=== PATIENT | male | born 1935 | race Two or more races ===

== ENCOUNTER 2022-12-09 15:38 | Emergency (ER) | payer OTHER ==
[~2022-12-09] VITALS: Ht 162.6 cm; Wt 63.5 kg
== END 2022-12-09 19:53 | disposition home or self-care (01) ==
LOC: ER 15:38 → EMR PED 15:58 → ER 15:58
DX: S29.8XXA Other specified injuries of thorax, initial encounter (principal); W19.XXXA Unspecified fall, initial encounter; Y93.9 Activity, unspecified; Y92.9 Unspecified place or not applicable; Y99.9 Unspecified external cause status; S40.012A Contusion of left shoulder, initial encounter; Z88.0 Allergy status to penicillin

== ENCOUNTER 2023-12-07 18:47 | Inpatient (IN) | payer OTHER ==
[~2023-12-07] VITALS: Ht 162.6 cm; Wt 74.8 kg
--- NOTE | 2023-12-07 19:05 | NUR ---
SE RECIBE PTE ALERTA EN AMBULANCIA ACOMPANADO DE HIJA. LA CUAL REFIERE TRAER A PTE CON UN ABSCESS EN LA ESPALDA, DEBILIDAD Y ABRACION EN EL BRAZO RT
[2023-12-07] MEDS ORDERED: CLINDAMYCIN PHOSPHATE 150 MG/ML (300mg) IV ONE (19:15)
[2023-12-07] MEDS ORDERED: 0.9 % SODIUM CHLORIDE 1,000 ML IV SCH (19:15)
[2023-12-07] MEDS ORDERED: LORazepam 2 MG/ML VIAL IM ONE (20:00)
--- NOTE | 2023-12-07 20:11 | NUR ---
SE ORIENTA FAMILIAR DE PTE SOBRE TX A SEGUIR, EL CUAL REFIERE ENTENDER. SE COLECTAN MUESTRAS Y SE CANALIZA PTE UTILIZANDO MEDIDAS ASEPTICAS. SE ADM. MEDICAMENTOS DORIS ORDEN MEDICA BAJO MEDIDAS ASEPTICAS.
[2023-12-07 20:17] LABS: URINE APPEARANCE Clear; URINE BILIRRUBIN Negative (NEGATIVE); URINE BLOOD Small; URINE COLOR Yellow; URINE GLUCOSE Negative (NEGATIVE); URINE LEUKOCYTE Negative; URINE NITRATE Negative; URINE PROTEIN 30 (NEGATIVE)
[2023-12-07 20:18] LABS: URINE BACTERIA 71.7 uL (0.0-1933); URINE EPITHELIAL CELLS 3.3 uL (0.0-38.8); URINE RBC 22.9 uL (0.0-20.8); URINE WBC 6.4 uL (0.0-23.2)
[2023-12-07 20:23] LABS: HEMATOCRIT 33.7 % (39.0-48.0); HEMOGLOBIN 11.3 g/dL (13-16.00); MEAN CELL VOLUME 88.9 fL (80.0-100.00); MEAN CORPUSCULAR HEMOGLOBIN 29.7 pg (27.00-32.0); MEAN CORPUSCULAR HGB CONC 33.4 g/dl (32.0-36.0); PLATELET COUNT 364 K/uL (150-450); RED BLOOD COUNT 3.79 M/uL (4.00-6.00); RED CELL DISTRIBUTION WIDTH 16.3 % (11.5-14.5)
[2023-12-07 20:56] LABS: ALBUMIN 2.6 gm/dL (3.4-5.0); BILIRUBIN TOTAL 0.47 mg/dL (0.3-1.2); CALCIUM 8.6 mg/dL (8.5-10.1); CREATININE SERUM 1.13 mg/dL (0.70-1.30); GFR 61.1; GLOBULINA 4.9 G/DL (2.4-3.5); POTASSIUM 3.99 mEq/L (3.5-5.1); TOTAL PROTEIN 7.5 gm/dL (6.4-8.2)
[2023-12-07] MEDS ORDERED: FUROsemide 20 MG/2 ML VIAL IV SCH (23:17)
[2023-12-07] MEDS ORDERED: LORazepam 2 MG/ML VIAL IM PRN (23:30)
[2023-12-07] MEDS ORDERED: DIPHENHYDRAMINE HCL 50 MG in 0.9 % SODIUM CHLORIDE 50 ML IV PRN (23:30)
[2023-12-07] MEDS ORDERED: ONDANSETRON HCL 4 MG in 0.9 % SODIUM CHLORIDE 50 ML IV PRN (23:30)
[2023-12-07] MEDS ORDERED: ACETAMINOPHEN 500 MG GEL..CAP PO PRN (23:30)
[2023-12-08] MEDS ORDERED: IPRATROPIUM BROMIDE 0.5 MG/2.5 ML AMPUL.NEB IH SCH
[2023-12-08] MEDS ORDERED: CLINDAMYCIN PHOSPHATE 600 MG in 0.9 % SODIUM CHLORIDE 50 ML IV SCH (01:00)
[2023-12-08 06:28] LABS: ABG PH 7.472 (7.35-7.45); ABG PO2 93.8 mmHg (80-100); ABG pCO2 38.4 mmHg (35-45); BASE EXCESS 3.7 mmol/l; BICARBONATE 27.4 mmol/l (23-25); SaO2 97.9 %; Tco2 28.6 mmol/l
[2023-12-08 06:30] LABS: allen test SATISFACTORY; o2 21 %; puncture site RADIAL LEFT
[2023-12-08] MEDS ORDERED: ENOXAPARIN SODIUM 40 MG/0.4 ML SYRINGE SUBCUTANEO SCH (09:00)
[2023-12-08] MEDS ORDERED: ASPIRIN 81 MG TABLET.EC PO SCH (09:00)
[2023-12-08] MEDS ORDERED: FAMOTIDINE/PF 20 MG in 0.9 % SODIUM CHLORIDE 8 ML IV PUSH SCH (09:00)
[2023-12-08 09:32] LABS: HEMOGLOBIN 10.4 g/dL (13-16.00); MEAN CELL VOLUME 88.2 fL (80.0-100.00); MEAN CORPUSCULAR HEMOGLOBIN 29.5 pg (27.00-32.0); MEAN CORPUSCULAR HGB CONC 33.4 g/dl (32.0-36.0); PLATELET COUNT 303 K/uL (150-450); RED BLOOD COUNT 3.52 M/uL (4.00-6.00); RED CELL DISTRIBUTION WIDTH 15.8 % (11.5-14.5)
[2023-12-08 09:33] LABS: URINE APPEARANCE Clear; URINE BILIRRUBIN Negative (NEGATIVE); URINE BLOOD Large; URINE COLOR Yellow; URINE GLUCOSE Negative (NEGATIVE); URINE LEUKOCYTE Negative; URINE NITRATE Negative
[2023-12-08 09:40] LABS: URINE BACTERIA 195.2 uL (0.0-1933); URINE EPITHELIAL CELLS 12.3 uL (0.0-38.8); URINE RBC 2193.6 uL (0.0-20.8); URINE WBC 31.3 uL (0.0-23.2)
[2023-12-08 09:49] LABS: URINE PROTEIN 100 (NEGATIVE)
[2023-12-08 10:05] LABS: ABG PH 7.462 (7.35-7.45); ABG PO2 63.7 mmHg (80-100); ABG pCO2 39.5 mmHg (35-45); BASE EXCESS 3.6 mmol/l; BICARBONATE 27.6 mmol/l (23-25); SaO2 93.5 %; Tco2 28.8 mmol/l; allen test SATISFACTORY; o2 21 %; puncture site RADIAL RIGHT
[2023-12-08 10:10] LABS: ALBUMIN 2.1 gm/dL (3.4-5.0); BILIRUBIN TOTAL 0.64 mg/dL (0.3-1.2); BILIRUBIN,CONJUGATED 0.2 mg/dL (0.0-0.2); BILIRUBIN,UNCONJUGATED 0.44 mg/dL (0.0-0.6); CALCIUM 8.3 mg/dL (8.5-10.1); CHOL HDL RATIO 3.1 (0-5.0); CREATININE SERUM 0.8 mg/dL (0.70-1.30); GFR 91.02; GLOBULINA 4.4 G/DL (2.4-3.5); POTASSIUM 4.27 mEq/L (3.5-5.1); TOTAL PROTEIN 6.5 gm/dL (6.4-8.2)
[2023-12-08 10:17] LABS: INR 1.1; PARTIAL THROMBOPLASTIN TIME 27.6 SECONDS (22.0-34.0); PROTHROMBIN TIME 11.5 SECONDS (9.0-11.5)
[2023-12-08 10:19] LABS: C-REACTIVE PROTEIN 3.76 MG/DL (0.00-0.29)
[2023-12-08 10:25] LABS: ERYTHROCYTE SEDIMENTATION RATE 68 mm/hr
[2023-12-08] MEDS ORDERED: HALOPERIDOL LACTATE 5 MG/ML AMPUL IM PRN (10:30)
[2023-12-08 23:15] LABS: ABG PH 7.474 (7.35-7.45); ABG PO2 76.4 mmHg (80-100); ABG pCO2 40.2 mmHg (35-45); BASE EXCESS 4.9 mmol/l; BICARBONATE 28.8 mmol/l (23-25); SaO2 96.3 %; Tco2 30.1 mmol/l
[2023-12-08 23:16] LABS: allen test SATISFACTORY; o2 28 %; puncture site RADIAL LEFT
[2023-12-09] MEDS ORDERED: FUROsemide 20 MG/2 ML VIAL IV SCH (09:00)
[2023-12-09] MEDS ORDERED: NA PHOS,M-B/NA PHOS,DI-BA 1 BOTTLE ENEMA RECTAL ONE (20:45)
[2023-12-10] MEDS ORDERED: FAMOTIDINE/PF 20 MG/2 ML VIAL ONE (07:59)
[2023-12-10] MEDS ORDERED: AZTREONAM 2,000 MG in 0.9 % SODIUM CHLORIDE 100 ML IV SCH (12:13)
[2023-12-10 22:35] LABS: ALBUMIN 2.1 gm/dL (3.4-5.0); BILIRUBIN TOTAL 0.37 mg/dL (0.3-1.2); CREATININE SERUM 1.01 mg/dL (0.70-1.30); GFR 69.55; GLOBULINA 4.3 G/DL (2.4-3.5); POTASSIUM 4.82 mEq/L (3.5-5.1); TOTAL PROTEIN 6.4 gm/dL (6.4-8.2)
[2023-12-11] MEDS ORDERED: FAMOTIDINE/PF 20 MG/2 ML VIAL ONE ×2 (07:48→16:03)
[2023-12-11] MEDS ORDERED: LORazepam 2 MG/ML VIAL IV STA (22:49)
[2023-12-13 05:28] LABS: HEMATOCRIT 30.7 % (39.0-48.0); MEAN CELL VOLUME 88.1 fL (80.0-100.00); MEAN CORPUSCULAR HGB CONC 33.4 g/dl (32.0-36.0); PLATELET COUNT 318 K/uL (150-450); RED BLOOD COUNT 3.48 M/uL (4.00-6.00); RED CELL DISTRIBUTION WIDTH 15.7 % (11.5-14.5)
[2023-12-13 05:34] LABS: HEMOGLOBIN 10.2 g/dL (13-16.00); MEAN CORPUSCULAR HEMOGLOBIN 29.3 pg (27.00-32.0)
[2023-12-13 05:53] LABS: CALCIUM 7.9 mg/dL (8.5-10.1); CREATININE SERUM 0.94 mg/dL (0.70-1.30); GFR 75.56; POTASSIUM 3.75 mEq/L (3.5-5.1)
[2023-12-13] MEDS ORDERED: CLOTRIMAZOLE 10 MG TROCHE MM SCH (13:00)
[2023-12-14] MEDS ORDERED: DOXYCYCLINE HYCLATE 100 MG TABLET PO SCH (09:00)
[2023-12-16] MEDS ORDERED: ENOXAPARIN SODIUM 30 MG/0.3 ML SYRINGE SUBCUTANEO SCH (09:00)
[2023-12-16] MEDS ORDERED: LOSARTAN POTASSIUM 25 MG TABLET PO SCH (09:00)
[2023-12-17] MEDS ORDERED: AMLODIPINE BESYLATE 5 MG TABLET PO SCH (11:50)
[2023-12-17] MEDS ORDERED: BUDESONIDE 0.5 MG/2 ML AMPUL.NEB IH STA (18:40)
[2023-12-17] MEDS ORDERED: BUDESONIDE 0.5 MG/2 ML AMPUL.NEB IH SCH (18:40)
[2023-12-17] MEDS ORDERED: METHYLPREDNISOLONE SOD SUCC 125 MG VIAL IV STA (18:41)
[2023-12-17] MEDS ORDERED: METHYLPREDNISOLONE SOD SUCC 40 MG VIAL IV SCH (21:00)
[2023-12-18] MEDS ORDERED: BUDESONIDE 0.5 MG/2 ML AMPUL.NEB IH SCH (09:00)
[2023-12-18 17:43] LABS: HEMATOCRIT 29.2 % (39.0-48.0); HEMOGLOBIN 9.8 g/dL (13-16.00); MEAN CELL VOLUME 87.6 fL (80.0-100.00); MEAN CORPUSCULAR HEMOGLOBIN 29.4 pg (27.00-32.0); MEAN CORPUSCULAR HGB CONC 33.6 g/dl (32.0-36.0); PLATELET COUNT 261 K/uL (150-450); RED BLOOD COUNT 3.33 M/uL (4.00-6.00); RED CELL DISTRIBUTION WIDTH 15.8 % (11.5-14.5)
[2023-12-18 18:10] LABS: ALBUMIN 1.9 gm/dL (3.4-5.0); BILIRUBIN TOTAL 0.26 mg/dL (0.3-1.2); CALCIUM 8.2 mg/dL (8.5-10.1); CREATININE SERUM 0.96 mg/dL (0.70-1.30); GFR 73.75; POTASSIUM 4.1 mEq/L (3.5-5.1); TOTAL PROTEIN 5.9 gm/dL (6.4-8.2)
[2023-12-18] MEDS ORDERED: QUETIAPINE FUMARATE 25 MG TABLET PO SCH (21:00)
[2023-12-19] MEDS ORDERED: AMLODIPINE BESYLATE 2.5 MG TABLET PO SCH (09:00)
[2023-12-19 21:59] LABS: ABG PH 7.425 (7.35-7.45); ABG PO2 36.8 mmHg (80-100); ABG pCO2 45.6 mmHg (35-45); BASE EXCESS 4.1 mmol/l; BICARBONATE 29.2 mmol/l (23-25); SaO2 72.6 %; Tco2 30.6 mmol/l
[2023-12-19 22:04] LABS: allen test NO SATISFACTORY; o2 21 %; puncture site RADIAL RIGHT
[2023-12-21] MEDS ORDERED: AMLODIPINE BESYLATE 5 MG TABLET PO SCH (09:00)
[2023-12-22] MEDS ORDERED: METHYLPREDNISOLONE SOD SUCC 125 MG VIAL IV STA (18:22)
[2023-12-22 19:48] LABS: ABG PH 7.501 (7.35-7.45); ABG PO2 61.1 mmHg (80-100); ABG pCO2 42.4 mmHg (35-45); BASE EXCESS 8.4 mmol/l; BICARBONATE 32.4 mmol/l (23-25); Tco2 33.7 mmol/l; allen test SATISFACTORY; o2 24 %; puncture site RADIAL RIGHT
[2023-12-22] MEDS ORDERED: CEFTRIAXONE SODIUM 2,000 MG VIAL IV STA (19:52)
[2023-12-22] MEDS ORDERED: CEFTRIAXONE SODIUM 2,000 MG VIAL IV SCH (19:54)
[2023-12-22] MEDS ORDERED: IPRATROPIUM BROMIDE 0.5 MG/2.5 ML AMPUL.NEB IH SCH (21:00)
[2023-12-23] MEDS ORDERED: METHYLPREDNISOLONE SOD SUCC 40 MG VIAL IV SCH (01:00)
[2023-12-23] MEDS ORDERED: FLUCONAZOLE IN NACL,ISO-OSM 50 ML IV SCH (09:00)
[2023-12-23] MEDS ORDERED: SODIUM CHLORIDE FOR INHALATION 1 VIAL.NEB IH SCH (09:14)
[2023-12-23 13:31] LABS: HEMATOCRIT 30.9 % (39.0-48.0); HEMOGLOBIN 10.1 g/dL (13-16.00); MEAN CELL VOLUME 89.3 fL (80.0-100.00); MEAN CORPUSCULAR HEMOGLOBIN 29.2 pg (27.00-32.0); MEAN CORPUSCULAR HGB CONC 32.6 g/dl (32.0-36.0); PLATELET COUNT 337 K/uL (150-450); RED BLOOD COUNT 3.46 M/uL (4.00-6.00); RED CELL DISTRIBUTION WIDTH 16.1 % (11.5-14.5)
[2023-12-23 13:53] LABS: ALBUMIN 2.3 gm/dL (3.4-5.0); BILIRUBIN TOTAL 0.31 mg/dL (0.3-1.2); CALCIUM 8.8 mg/dL (8.5-10.1); CREATININE SERUM 1.13 mg/dL (0.70-1.30); GFR 61.1; GLOBULINA 4.6 G/DL (2.4-3.5); POTASSIUM 3.21 mEq/L (3.5-5.1); TOTAL PROTEIN 6.9 gm/dL (6.4-8.2)
[2023-12-23] MEDS ORDERED: DEXTROSE 5 % IN WATER 1,000 ML IV SCH (14:30)
[2023-12-24] MEDS ORDERED: FLUCONAZOLE IN NACL,ISO-OSM 2 MG/ML ML IV SCH (09:00)
[2023-12-24] MEDS ORDERED: levoFLOXacin IN DEXTROSE 5 % 150 ML IV SCH (17:30)
[2023-12-24] MEDS ORDERED: DIPHENHYDRAMINE HCL 50 MG/ML VIAL 1ML IV ONE (20:00)
[2023-12-24] MEDS ORDERED: HALOPERIDOL LACTATE 5 MG/ML AMPUL IV ONE (20:00)
[2023-12-24] MEDS ORDERED: HALOPERIDOL LACTATE 5 MG/ML AMPUL IV PRN (21:43)
[2023-12-25] MEDS ORDERED: LORazepam 2 MG/ML VIAL IV ONE (09:00)
[2023-12-25 23:47] LABS: HEMATOCRIT 38.1 % (39.0-48.0); HEMOGLOBIN 12.5 g/dL (13-16.00); MEAN CELL VOLUME 88.7 fL (80.0-100.00); MEAN CORPUSCULAR HGB CONC 32.7 g/dl (32.0-36.0); PLATELET COUNT 391 K/uL (150-450); RED CELL DISTRIBUTION WIDTH 15.7 % (11.5-14.5)
[2023-12-26 00:12] LABS: ALBUMIN 2.3 gm/dL (3.4-5.0); BILIRUBIN TOTAL 0.48 mg/dL (0.3-1.2); CALCIUM 8.7 mg/dL (8.5-10.1); CREATININE SERUM 0.82 mg/dL (0.70-1.30); GFR 88.46; GLOBULINA 4.5 G/DL (2.4-3.5); POTASSIUM 3.8 mEq/L (3.5-5.1); TOTAL PROTEIN 6.8 gm/dL (6.4-8.2)
[2023-12-26] MEDS ORDERED: METHYLPREDNISOLONE SOD SUCC 40 MG VIAL IV SCH (01:00)
[2023-12-26 12:28] LABS: ABG PO2 65.5 mmHg (80-100); ABG pCO2 42.4 mmHg (35-45); BASE EXCESS 7.4 mmol/l; BICARBONATE 31.6 mmol/l (23-25); SaO2 94.7 %; Tco2 32.9 mmol/l; allen test SATISFACTORY; o2 21 %; puncture site RADIAL RIGHT
[2023-12-27] MEDS ORDERED: ONDANSETRON HCL 4 MG in 0.9 % SODIUM CHLORIDE 50 ML IV PRN (07:15)
[2023-12-27] MEDS ORDERED: PANTOPRAZOLE SODIUM 40 MG/VIAL VIAL IV SCH (07:15)
[2023-12-27 10:26] LABS: HEMATOCRIT 24.8 % (39.0-48.0); MEAN CELL VOLUME 85.4 fL (80.0-100.00); MEAN CORPUSCULAR HGB CONC 33.5 g/dl (32.0-36.0); PLATELET COUNT 290 K/uL (150-450); RED BLOOD COUNT 2.91 M/uL (4.00-6.00); RED CELL DISTRIBUTION WIDTH 15.2 % (11.5-14.5)
[2023-12-27 10:27] LABS: MEAN CORPUSCULAR HEMOGLOBIN 28.5 pg (27.00-32.0)
[2023-12-27 10:28] LABS: HEMOGLOBIN 8.3 g/dL (13-16.00)
[2023-12-27] MEDS ORDERED: 0.9 % SODIUM CHLORIDE 1,000 ML IV SCH (12:00)
[2023-12-27] MEDS ORDERED: NOREPINEPHRINE BITARTRATE 1 MG/ML AMPUL IV ONE (17:15)
[2023-12-27] MEDS ORDERED: NOREPINEPHRINE BITARTRATE 1 MG/ML AMPUL IV SCH (17:15)
[2023-12-27] MEDS ORDERED: NOREPINEPHRINE BITARTRATE 8 MG in DEXTROSE 5 % IN WATER 250 ML IV SCH (18:30)
[2023-12-28 12:04] LABS: HEMATOCRIT 32.8 % (39.0-48.0); MEAN CELL VOLUME 87.5 fL (80.0-100.00); MEAN CORPUSCULAR HGB CONC 32.4 g/dl (32.0-36.0); PLATELET COUNT 198 K/uL (150-450); RED BLOOD COUNT 3.75 M/uL (4.00-6.00); RED CELL DISTRIBUTION WIDTH 15.4 % (11.5-14.5)
[2023-12-28 12:37] LABS: HEMOGLOBIN 10.6 g/dL (13-16.00); MEAN CORPUSCULAR HEMOGLOBIN 28.2 pg (27.00-32.0)
[2023-12-28] MEDS ORDERED: MEROPENEM 500 MG/VIAL VIAL IV SCH (15:30)
[2023-12-28] MEDS ORDERED: HYDROCORTISONE SODIUM SUCC/PF 100 MG VIAL IV SCH (17:00)
[2023-12-29 13:07] LABS: hav igm Negative (Negative); hcv Non Reactive (Non Reactive); hep b c Negative (Negative)
== END 2023-12-28 22:47 | disposition expired | DRG 871 ==
LOC: ER 18:47 → SEC-K 12-08 00:03 → SURG 12-08 00:03 → SEC-K 12-08 03:08 → SURG 12-08 10:14
PROVIDERS: General Practice; Internal Medicine; ADMIT Internal Medicine; ATTEND Internal Medicine
PROC: B246ZZZ Ultrasonography of Right and Left Heart (ICD-10-PCS; 2023-12-07)
PROC: 3E0F7GC Introduction of Other Therapeutic Substance into Respiratory Tract, Via Natural or Artificial Opening (ICD-10-PCS; 2023-12-08)
PROC: 0W9K0ZZ Drainage of Upper Back, Open Approach (ICD-10-PCS; principal; 2023-12-11)
PROC: B020ZZZ Computerized Tomography (CT Scan) of Brain (ICD-10-PCS; 2023-12-18)
PROC: 4A12X4Z Monitoring of Cardiac Electrical Activity, External Approach (ICD-10-PCS; 2023-12-23)
PROC: BB24YZZ Computerized Tomography (CT Scan) of Bilateral Lungs using Other Contrast (ICD-10-PCS; 2023-12-24)
PROC: 02HV33Z Insertion of Infusion Device into Superior Vena Cava, Percutaneous Approach (ICD-10-PCS; 2023-12-27)
PROC: 30243N1 Transfusion of Nonautologous Red Blood Cells into Central Vein, Percutaneous Approach (ICD-10-PCS; 2023-12-27)
PROC: 0D9670Z Drainage of Stomach with Drainage Device, Via Natural or Artificial Opening (ICD-10-PCS; 2023-12-27)
DX: A41.9 Sepsis, unspecified organism (principal); J69.0 Pneumonitis due to inhalation of food and vomit; R65.21 Severe sepsis with septic shock; L02.212 Cutaneous abscess of back [any part, except buttock and flank]; L03.312 Cellulitis of back [any part except buttock and flank]; G93.40 Encephalopathy, unspecified; J90 Pleural effusion, not elsewhere classified; K92.0 Hematemesis; J44.1 Chronic obstructive pulmonary disease with (acute) exacerbation; F03.C11 Unspecified dementia, severe, with agitation; L72.3 Sebaceous cyst; R13.19 Other dysphagia; B96.6 Bacteroides fragilis [B. fragilis] as the cause of diseases classified elsewhere; B96.20 Unspecified Escherichia coli [E. coli] as the cause of diseases classified elsewhere; B96.89 Other specified bacterial agents as the cause of diseases classified elsewhere; R60.0 Localized edema; F17.210 Nicotine dependence, cigarettes, uncomplicated; Z66 Do not resuscitate